=== PATIENT | male | born 1970 ===

== ENCOUNTER 2018-12-03 02:39 | Emergency (ER) | payer SELFPAY ==
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
[2018-12-03 02:51] VITALS: BP 134/103
== END 2018-12-03 02:52 ==
DX: F10.921 Alcohol use, unspecified with intoxication delirium (principal); I10 Essential (primary) hypertension; Z79.82 Long term (current) use of aspirin